=== PATIENT | female | born 1990 | race African-American/Black ===

== ENCOUNTER 2024-12-02 23:28 | Emergency (ER) | payer OTHER, SELFPAY ==
[2024-12-02 23:54] VITALS: BP 142/100
[2024-12-03 00:38] LABS: Urine Albumin 1+ (Neg - Trace); Urine Bilirubin Negative (Negative); Urine Character Clear (Clear); Urine Color Yellow; Urine Glucose Negative (Negative); Urine Ketone 1+ (Negative); Urine Leukocyte Negative (Negative); Urine Nitrite Negative (Negative); Urine Occult Blood 1+ (Negative); Urine Specific Gravity 1.025 (<1.030); Urine Urobilinogen Negative (Neg - 1+)
[2024-12-03 01:20] LABS: HCG, Urine Qualitative Screen Positive
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
[2024-12-03 02:14] LABS: Urine Amorphous Seen; Urine Calcium Oxalate Crystals Seen; Urine Mucus Moderate; Urine Squamous Cell >30 /LPF (Few)
[2024-12-03 02:15] LABS: Urine Bacteria Many (Negative); Urine White Cell 0-2 /HPF (0-5)
[2024-12-03 02:24] VITALS: BMI 47.2
[2024-12-03] MEDS: TYLENOL 500 MG PO ×2 (02:25→07:14)
[2024-12-03] MEDS: NSS 500 IV (02:29)
[2024-12-03 02:30] VITALS: BP 96/60
[2024-12-03 02:36] LABS: Hemoglobin 11.1 g/dL (12.0-16.0); Mean Corp Hgb Conc. 32.6 g/dL (33.0-37.0); Mean Corpuscular Volume 73.6 fL (81.0-99.0); Mean Platelet Volume 10.5 fL (7.4-10.4); Platelet Count 427 10^3/uL (130-400); Red Blood Cell Count 4.62 10^6/uL (4.20-5.40); White Blood Cell Count 9.1 10^3/uL (4.8-10.8)
[2024-12-03 03:18] LABS: ALT (SGPT) 15 U/L (0-35); AST (SGOT) 18 U/L (14-36); Albumin 4.1 g/dl (3.5-5.0); Alkaline Phosphatase 67 U/L (38-126); Blood Urea Nitrogen 11 mg/dl (7-17); Calcium 9.6 mg/dl (8.4-10.2); Carbon Dioxide 21 mmol/L (22-30); Chloride 110 mmol/L (98-107); Estimated Creatinine Clearance > 125 ml/min; Glucose 91 mg/dl (70-99); Sodium 140 mmol/L (135-145); Total Bilirubin 0.5 mg/dl (0.2-1.3); Total Protein 7.2 g/dl (6.3-8.2); eGFR > 60.00
[2024-12-03 04:30] VITALS: BP 114/60
== END 2024-12-03 07:10 | disposition home or self-care (01) ==
LOC: EMR 23:28
PROVIDERS: EMERGENCY PHYSICIAN Student in an Organized Health Care Education/Training Program
DX: O20.0 Threatened abortion (principal); V49.9XXA Car occupant (driver) (passenger) injured in unspecified traffic accident, initial encounter; Y92.410 Unspecified street and highway as the place of occurrence of the external cause; Z3A.01 Less than 8 weeks gestation of pregnancy
CPT/HCPCS: 99284; 96360; 76801; 76817; 80053; 81003; 81015; 81025; 84702; 85027; 86850; 86900; 86901; 87086

== ENCOUNTER 2024-12-06 04:12 | Emergency (ER) | payer OTHER, SELFPAY ==
[2024-12-06 04:14] VITALS: BP 128/88
[2024-12-06 04:39] VITALS: BMI 48.7
[2024-12-06 05:02] LABS: COVID-19 Antigen Negative (Negative)
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
== END 2024-12-06 06:46 | disposition home or self-care (01) ==
LOC: EMR 04:12
PROVIDERS: Student in an Organized Health Care Education/Training Program; EMERGENCY PHYSICIAN Emergency Medicine
DX: O99.891 Other specified diseases and conditions complicating pregnancy (principal); R07.0 Pain in throat; O21.9 Vomiting of pregnancy, unspecified; O99.511 Diseases of the respiratory system complicating pregnancy, first trimester; J45.909 Unspecified asthma, uncomplicated; Z3A.01 Less than 8 weeks gestation of pregnancy; Z79.899 Other long term (current) drug therapy
CPT/HCPCS: 99282; 87502; 87811

== ENCOUNTER 2025-03-10 21:17 | Emergency (ER) | payer OTHER, SELFPAY ==
[2025-03-10 21:23] VITALS: BP 143/80
[2025-03-10 21:54] LABS: Hematocrit 35.5 % (37.0-47.0); Hemoglobin 11.4 g/dL (12.0-16.0); Mean Corp Hgb Conc. 32.1 g/dL (33.0-37.0); Mean Corpuscular Volume 73.8 fL (81.0-99.0); Nucleated Red Blood Cells % 0 %; Platelet Count 354 10^3/uL (130-400); Red Cell Dist. Width 15.9 % (11.5-14.5)
[2025-03-11 00:08] LABS: Beta HCG Quantitative < 2.39 mIU/ml
[2025-03-11 00:11] VITALS: BP 116/67
[2025-03-11 01:00] VITALS: BP 124/79
[2025-03-11] MEDS: TYLENOL 1000 MG PO (01:38)
--- NOTE | 2025-03-11 01:41 | ED.GENMED ---
History of Present Illness
<Jazmin Lopez PA-C - Last Filed: 03/12/25 13:13>
General
Chief Complaint: Vaginal Bleeding
Source: patient
Time Seen by Provider: 03/11/25 00:53
History of Present Illness
History of Present Illness:
34-year-old female with past medical history of asthma and anxiety presenting to the emergency department for evaluation of vaginal bleeding that has been relatively heavy for the last 2 weeks, notes that she had a miscarriage in end of
November/beginning of December, thought her menstrual had gone back to normal. Patient unsure if she is as she did not take any test at home. She does note some abdominal cramping associated with this. There are no fevers, chills,
rigors, back or flank pain. Patient states that she did contact her [employer] and would be able to be seen on Friday or Friday but did not feel that this could wait through the weekend.
Past History
<Jazmin Lopez PA-C - Last Filed: 03/12/25 13:13>
Past History
ED Past Medical History: Asthma and Psychiatric
ED Past Surgical History: Bowel resection
Social History
Tobacco: Non-smoker
Alcohol: None
Drug: None
Personal: Single
Living: with family
Review of Systems
<Jazmin Lopez PA-C - Last Filed: 03/12/25 13:13>
Review of Systems
All Other Systems: ROS reviewed and negative except as documented in HPI and ROS
Phy Exam
<Jazmin Lopez PA-C - Last Filed: 03/12/25 13:13>
Physical Exam
Physical Exam:
GENERAL: Alert , in no apparent distress
EYE: clear conjunctiva b/l
HEAD: NCAT
ENT: mmm.
CARDIAC: Regular rate and rhythm .
LUNGS: Clear breath sounds bilaterally, no acute respiratory distress, no wheezes/rales/rhonchi
ABDOMEN: Soft, without focal tenderness, no r/g, no cvat
NEUROLOGICAL: Alert and oriented
SKIN: Warm and dry, skin intact.
MUSCULOSKELETAL: well perfused.
PSYCH: Normal and appropriate interaction.
Scores
<Jazmin Lopez PA-C - Last Filed: 03/12/25 13:13>
Heart Failure Risk
Heart Failure Risk Score: Not Applicable
Heart Score for Chest Pain Patients
STEMI patient?: Not applicable
Withdrawal Assessment of Alcohol
Withdrawal Assessment Completed?: Not applicable
Course
<Jazmin Lopez PA-C - Last Filed: 03/12/25 13:13>
Orders/Labs/Results
Orders:
Orders
03/10/25 21:28
Test Result ONCE
03/10/25 21:33
Beta HCG Quantitative Urgent
Is this a screen?: No
Complete Blood Count/With Diff Urgent
03/11/25 01:08
Ibuprofen [Motrin] 600 mg PO NOW STA
US Pelvis Only (non-obstetric) Urgent
Comment:
Reason For Exam: menorrhagia
03/11/25 01:34
Acetaminophen [Tylenol] 1,000 mg PO NOW STA
Abnormal Lab Results
03/10/25
21:33
WBC 11.9 H 10^3/uL
(4.8-10.8)
Hgb 11.4 L g/dL
(12.0-16.0)
Hct 35.5 L %
(37.0-47.0)
MCV 73.8 L fL
(81.0-99.0)
MCH 23.7 L pg
(27.0-31.0)
MCHC 32.1 L g/dL
(33.0-37.0)
RDW 15.9 H %
(11.5-14.5)
MPV 10.7 H fL
(7.4-10.4)
Absolute Neuts (auto) 6.6 H 10^3/uL
(1.4-6.5)
Absolute Lymphs (auto) 4.0 H 10^3/uL
(1.2-3.4)
Absolute Monos (auto) 0.9 H 10^3/uL
(0.1-0.6)
03/10/25 21:33
Vital Signs
Initial and Last Documented VS:
Initial Vital Signs
Temp Pulse Resp BP Pulse Ox
98 F 95 16 143/80 100
03/10/25 21:23 03/10/25 21:23 03/10/25 21:23 03/10/25 21:23 03/10/25 21:23
Last Documented Vital Signs
Temp Pulse Resp BP Pulse Ox
98 F 95 16 124/79 98
03/10/25 21:23 03/10/25 21:23 03/10/25 21:23 03/11/25 01:00 03/11/25 02:30
Douglt;Narendra Hicks, DO - Last Filed: 03/11/25 03:33>
Orders/Labs/Results
Orders:
Orders
03/10/25 21:28
Test Result ONCE
03/10/25 21:33
Beta HCG Quantitative Urgent
Is this a screen?: No
Complete Blood Count/With Diff Urgent
03/11/25 01:08
Ibuprofen [Motrin] 600 mg PO NOW STA
US Pelvis Only (non-obstetric) Urgent
Comment:
Reason For Exam: menorrhagia
03/11/25 01:34
Acetaminophen [Tylenol] 1,000 mg PO NOW STA
Abnormal Lab Results
03/10/25
21:33
WBC 11.9 H 10^3/uL
(4.8-10.8)
Hgb 11.4 L g/dL
(12.0-16.0)
Hct 35.5 L %
(37.0-47.0)
MCV 73.8 L fL
(81.0-99.0)
MCH 23.7 L pg
(27.0-31.0)
MCHC 32.1 L g/dL
(33.0-37.0)
RDW 15.9 H %
(11.5-14.5)
MPV 10.7 H fL
(7.4-10.4)
Absolute Neuts (auto) 6.6 H 10^3/uL
(1.4-6.5)
Absolute Lymphs (auto) 4.0 H 10^3/uL
(1.2-3.4)
Absolute Monos (auto) 0.9 H 10^3/uL
(0.1-0.6)
03/10/25 21:33
Vital Signs
Initial and Last Documented VS:
Initial Vital Signs
Temp Pulse Resp BP Pulse Ox
98 F 95 16 143/80 100
03/10/25 21:23 03/10/25 21:23 03/10/25 21:23 03/10/25 21:23 03/10/25 21:23
Last Documented Vital Signs
Temp Pulse Resp BP Pulse Ox
98 F 95 16 124/79 98
03/10/25 21:23 03/10/25 21:23 03/10/25 21:23 03/11/25 01:00 03/11/25 02:30
<Jazmin Lopez PA-C - Last Filed: 03/12/25 13:13>
MDM/Problems Addressed
Differential Diagnosis Includes:
- Incomplete
- Completed
- Threatened
- Dysfunctional uterine bleeding
- Fibroids
- Anemia
-Ectopic
- Ovarian cyst
MDM/Problems Addressed:
34-year-old female presenting to the ER for evaluation of heavy vaginal bleeding over the last 2 weeks. Seen in this emergency department at the end of November for miscarriage. Labs were initiated on arrival here and patient test is
negative. There is still a possibility this could have been a complete . Will obtain ultrasound for further evaluation as patient is concerned given her recent history of the miscarriage. Hemoglobin 11.4, this is up from 11.1 when she was
here in November. Patient is otherwise hemodynamically stable. Will consider either Aygestin or Lysteda to help control the bleeding anticipate discharge home pending workup.
<Jazmin Lopez PA-C - Last Filed: 03/12/25 13:13>
*Pulse Oximetry
SaO2: 98
Oxygen Mode of Delivery: Room air
Patient hypoxic: no
*Critical Care Note
Total Time (30-74mins, 75-104mins- exclusive of procedures): Not Applicable
Data Reviewed
Review of Other/Old Records Reveals: Labs and Records
<Narendra Hicks DO - Last Filed: 03/11/25 03:33>
Update Note
Update Note:
NAME: CHILO CABALLERO
DATE OF EXAM: 03/11/2025
Patient No: [id number]
Physician: SHANNAN^JAZMIN^Kade
Date of : 1990
Past Medical History (entered by Technologist):
Reason For Exam (entered by Technologist):
Other Notes (entered by Technologist):
Additional Information (per [facility]): Prolonged vaginal bleeding for 2 weeks
ULTRASOUND PELVIS
IMPRESSION:
Comparison: 12/03/2024.
Transabdominal scan only.
Normal-sized uterus. The endometrial stripe measures 5 mm. No obvious fibroids.
Normal-sized ovaries containing Doppler flow.
No free fluid.
Results faxed/electronically transmitted to the ER and radiology department at 3:13 AM ET.
Benny Haddad M.D.
This report has been electronically signed and verified by the Radiologist whose name is printed above.
ED Attending Note
<SUPRIYA Bocanegra-Elysia - Last Filed: 03/12/25 13:13>
-
Portions of this chart may have been created with voice recognition software.� Occasional wrong word or��sound alike� substitutions may have occurred due to the inherent limitations of voice recognition software.
<Narendra Hicks DO - Last Filed: 03/11/25 03:33>
ED Attending Note
Patient seen and examined by attending physician: Yes
ED Attending Note:
Discussed ultrasound findings with patient. She has follow-up with her [employer]. She states that she has been having a light cough over the last few days. Requests cough drops. Patient was seen in conjunction with the PA. I reviewed and agree
with his history and treatment plan. My independent physical exam patient awake alert and oriented x 3. Oropharynx is clear. Uvula is midline. Tonsils are not injected. There is slight postnasal drip seen in the posterior oropharynx. Lungs are
clear to auscultation bilaterally without wheezes rales or rhonchi present.
Discharge Plan
Departure
Patient Disposition: Home (Routine Discharge)
Date of Disposition: 03/11/25
Time of Disposition: 03:20
Patient with high blood pressure during this ER visit?: Yes
Discharge Problem:
Menorrhagia
Instructions: Heavy Periods (DC)
Prescriptions:
New
tranexamic acid 650 mg tablet
1,300 mg PO TID 5 Days Qty: 30 0RF
benzonatate 100 mg capsule
100 mg PO Q6H PRN (Reason: Cough) Qty: 14 0RF
No Action
albuterol sulfate 90 mcg/actuation HFA aerosol inhaler
2 puff inhalation Q6H PRN (Reason: shortness of breath or wheezing) Qty: 6.7 0RF
Referrals:
Amairs Michel CRNP [Family Provider]
Activity Restrictions/Additional Instructions:
Thank You for choosing [facility].
It was a pleasure meeting you and taking part in your care. We hope for your continued healing and wellness.
Please read discharge instructions in their entirety. However, they are for general education and may not describe your exact diagnosis at discharge. Information on your ER visit and medical conditions were discussed with you along with appropriate
follow up information...
If indicated, please take your medications as instructed and indicated on discharge paperwork.
Please schedule a follow up appointment as directed. Call to schedule an appointment
Please return to the emergency department with ANY change in, persisting, or worsening of symptoms. If any of your symptoms do not improve, or persist, or become more severe within 6-12 hours, please return to the emergency department for further
care.
Please return to the emergency department if you develop a headache, neck pain/stiffness, fever greater than 100.4F, chest pain, shortness of breath, persistent nausea, vomiting, slurred speech, difficulty walking, numbness/tingling, weakness, signs
of infection or any other symptoms that are worrisome to you.
If you have any questions or concerns please do not hesitate to call the Hospital at or E-mail me directly at [email or web address]
Interventions
Interventions:
*Risk Screen - Suicide Last Done: 03/10/25 21:23
*General Assessment Last Done: 03/11/25 02:22
*Neglect/Abuse Screening Last Done: 03/10/25 21:23
*ED- Fall Risk Assessment Last Done: 03/11/25 02:22
*ED COVID-19 Vaccine History Last Done: 03/11/25 02:22
*Nursing Disposition Last Done: 03/11/25 03:56
ED-Female Genitourinary Assessment Last Done: 03/11/25 01:31
Discharge Date and Time
Discharge Date/Time: 03/11/25 03:56
Print Language: SWEDISH
== END 2025-03-11 03:56 | disposition home or self-care (01) ==
LOC: EMR 21:17
PROVIDERS: Student in an Organized Health Care Education/Training Program; EMERGENCY PHYSICIAN Student in an Organized Health Care Education/Training Program; FAMILY PHYSICIAN Nurse Practitioner Family
DX: N92.0 Excessive and frequent menstruation with regular cycle (principal); J45.909 Unspecified asthma, uncomplicated
CPT/HCPCS: 99284; 76856; 84702; 85025